=== PATIENT | female | born 1950 | race Caucasian/White ===

== ENCOUNTER 2017-06-23 13:02 | Outpatient (CLI) | payer OTHER | END 2017-06-23 17:00 | disposition home or self-care (01) | LOC: HPC 17:00 | DX: C18.9 Malignant neoplasm of colon, unspecified (principal); C78.7 Secondary malignant neoplasm of liver and intrahepatic bile duct | CPT/HCPCS: Z7500 ==

== ENCOUNTER 2017-08-10 05:56 | Inpatient (IN) | payer OTHER ==
[2017-08-10] MEDS: PIPER-TAZO 3.375 GM IV (PMX) 100 ML IVPB (07:00)
[2017-08-10] MEDS: BUPIVACAINE 0.5%/EPI (SDV) 30 ML INJ INJ (07:30)
[2017-08-10] MEDS ORDERED: ONDANSETRON 4 MG INJ ×2 (07:36→10:27)
[2017-08-10] MEDS ORDERED: PROPOFOL 20 ML (07:36)
[2017-08-10] MEDS ORDERED: ROCURONIUM 50 MG INJ (07:36)
[2017-08-10] MEDS ORDERED: morphine SULFATE/PF (10 MG/10 ML) INJ (07:36)
[2017-08-10] MEDS ORDERED: FENTAnyl 50 MCG/ML VIAL (07:36)
[2017-08-10] MEDS ORDERED: CEFAZOLIN 1 GM INJ (07:36)
[2017-08-10] MEDS ORDERED: NEOSTIGMINE 3 MG/3 ML SYRINGE (07:36)
[2017-08-10] MEDS ORDERED: DEXAMETHASONE 4 MG/ML 1 ML INJ (07:36)
[2017-08-10] MEDS ORDERED: GLYCOPYRROLATE 0.4 MG INJ (07:36)
[2017-08-10] MEDS ORDERED: MIDAZOLAM 1 MG/ML 2 ML INJ (07:36)
[2017-08-10] MEDS ORDERED: BUPIVACAINE 0.75%/DEXT (SPINAL) 2 ML INJ (07:46)
[2017-08-10] MEDS ORDERED: SUGAMMADEX SODIUM 200 MG/2 ML VIAL IV ×2 (10:04→10:09)
[2017-08-10] MEDS ORDERED: HYDROmorphONE (0.2 MG/ML) 10ML SYG IV ×3 (10:27→10:30)
[2017-08-10] MEDS ORDERED: OXYCODONE/ACETAMINOPHEN (5/325) TAB PO ×2 (10:30)
[2017-08-10] MEDS ORDERED: DIPHENHYDRAMINE 50 MG INJ IV (10:30)
[2017-08-10] MEDS ORDERED: LABETALOL HCL 20MG INJ IV (10:30)
[2017-08-10] MEDS ORDERED: hydrALAzine 20 MG INJ IV (10:30)
[2017-08-10] MEDS ORDERED: IPRATROPIUM (NEB) 0.5 MG/2.5 ML AMP HHN (10:30)
[2017-08-10] MEDS ORDERED: DOCUSATE SODIUM 100 MG CAP PO (10:30)
[2017-08-10] MEDS ORDERED: BISACODYL 10 MG SUPP PR (10:30)
[2017-08-10] MEDS ORDERED: MEPERIDINE 25 MG INJ IV (10:30)
[2017-08-10] MEDS ORDERED: HYDROCODONE/APAP (5/325) TAB PO ×2 (10:30)
[2017-08-10] MEDS ORDERED: TRIMETHOBENZAMIDE 100 MG/ML VIAL IM (10:30)
[2017-08-10] MEDS ORDERED: ALBUTEROL 0.083% (NEB) 2.5 MG/3 ML AMP HHN (10:30)
[2017-08-10] MEDS ORDERED: MIDAZOLAM 1 MG/ML 2 ML INJ IV (10:30)
[2017-08-10] MEDS ORDERED: EPHEDrine SULFATE 50 MG/5 ML SYG IV (10:30)
[2017-08-10] MEDS ORDERED: FENTAnyl 50 MCG/ML VIAL IV ×3 (10:30)
[2017-08-10] MEDS: HYDROmorphONE (0.2 MG/ML) 10ML SYG IV ×2 (10:45→11:05)
[2017-08-10] MEDS: ONDANSETRON 4 MG INJ IV ×2 (11:58→12:50)
[2017-08-10] MEDS: METOCLOPRAMIDE 10 MG INJ IV (15:34)
== END 2017-08-10 16:34 | disposition home or self-care (01) | DRG 375 ==
LOC: REC 05:56
PROC: 0WBH4ZX Excision of Retroperitoneum, Percutaneous Endoscopic Approach, Diagnostic (ICD-10-PCS; principal; 2017-08-10 07:30)
DX: C78.6 Secondary malignant neoplasm of retroperitoneum and peritoneum (principal); C18.2 Malignant neoplasm of ascending colon; I10 Essential (primary) hypertension; D64.9 Anemia, unspecified; J45.909 Unspecified asthma, uncomplicated; K66.0 Peritoneal adhesions (postprocedural) (postinfection)
CPT/HCPCS: 86850; 86900; 86901; 88307; 88313

== ENCOUNTER 2017-08-25 10:41 | Outpatient (CLI) | payer OTHER | END 2017-08-25 15:30 | disposition home or self-care (01) | LOC: HPC 10:41 | DX: Z09 Encounter for follow-up examination after completed treatment for conditions other than malignant neoplasm (principal); Z85.038 Personal history of other malignant neoplasm of large intestine; C78.7 Secondary malignant neoplasm of liver and intrahepatic bile duct; I10 Essential (primary) hypertension; D64.9 Anemia, unspecified; J45.909 Unspecified asthma, uncomplicated | CPT/HCPCS: Z7500 ==